=== PATIENT | female | born 1950 | race Asian ===

== ENCOUNTER 2017-04-18 08:14 | Outpatient (CLI) | payer BC, OTHER ==
--- NOTE | 2017-04-20 09:49 | Mammography Report ---
DIGITAL BILATERAL SCREENING MAMMOGRAM: 04/18/2017 CLINICAL HISTORY: This is a 66-year-old female in for routine screening mammogram. Patient has no f amily history of breast cancer. The patient has had no prior breast surgeries. COMPARISON: 02/16/2008, 05/18/2011, 06/26/2012, 11/14/2014 TECHNIQUE: Craniocaudad and oblique lateral views of each breast were obtained with [facility] digital mammography. FINDINGS: Breast parenchyma consists of scattered fibroglandular densities. A 0.4 cm in diameter be nign intramammary lymph node is once again seen in the inferior half of the left breast. No signific ant clusters of calcification are seen. No significant change is noted. IMPRESSION: BREASTS APPEAR RADIOGRAPHICALLY BENIGN. BIRADS CATEGORY 1 - NEGATIVE. RECOMMENDATIONS: Annual bilateral screening mammography. STANDARD QUALIFYING STATEMENTS 1. This examination was reviewed with the aid of Computer-Aided Detection (CAD). 2. A negative or benign imaging report should not delay biopsy if clinically suspicious findings are present. Consider surgical consultation if warranted. More than 5% of cancers are not identified by i ing. 3. Dense breasts may obscure an underlying neoplasm. JOB #: [id number] EXT JOB #:[id number]
== END 2017-04-18 08:15 | disposition home or self-care (01) ==
LOC: DI 08:14
PROVIDERS: ATTEND Registered Nurse
DX: Z12.31 Encounter for screening mammogram for malignant neoplasm of breast (principal)
CPT/HCPCS: 77067

== ENCOUNTER 2018-12-11 15:06 | Outpatient (CLI) | payer MEDICARE ==
--- NOTE | 2018-12-11 16:42 | DEXA Report ---
Reason: ENCOUNTER FOR SCREENING FOR OSTEOPOROSIS Procedure Date: 12/11/2018 Accession Number: [id number] / [id number] Procedure: DEX - Dexa Spine and/or Hip CPT Code: FULL RESULT: EXAM: Dexa Spine and/or Hip DATE: 12/11/2018 3:48 PM CLINICAL HISTORY: ENCOUNTER FOR SCREENING FOR OSTEOPOROSIS TECHNIQUE: Dual energy x-ray absorptiometry (DXA) was performed on a [employer] System. Regions measured are the AP Spine, femoral neck, and if needed forearm. COMPARISON: None. In accordance with the International Society for Clinical Densitometry (ISCD) guidelines, data from previous exams may be reanalyzed using current recommendations and techniques. This is done to allow a more accurate basis for comparison with the current study. FINDINGS: The data for the lumbar spine is as follows: BMD (g/cm/cm) T-SCORE Z-SCORE REGION L1 0.839 -2.4 -0.8 L2 0.819 -3.2 -1.5 L3 0.927 -2.3 -0.7 L4 0.916 -2.4 -0.7 TOTAL 0.881 -2.5 -0.9 NOTE: All evaluable vertebrae are used for classification The data for the hip is as follows: BMD (g/cm/cm) T-SCORE Z-SCORE REGION Neck 0.809 -1.6 -0.1 TOTAL 0.813 -1.5 -0.3 NOTE: The femoral neck or total proximal femur, whichever is lowest, is used for classification. IMPRESSION: THE WHO CLASSIFICATION BASED ON THE INTERNATIONAL REFERENCE STANDARD IS OSTEOPOROSIS. THE FRACTURE RISK IS HIGH. RECOMMENDATION: Patients with diagnosis of osteoporosis or osteopenia should have regular bone mineral density assessment. For those eligible for Medicare, routine testing is allowed once every 2 years. Testing frequency can be increased for patients who have rapidly progressing disease or for those who are receiving medical therapy to restore bone mass. COMMENT: World Health Organization (WHO) definitions for osteoporosis and osteopenia: NORMAL BMD: T-score at -1.0 or higher, fracture risk is low OSTEOPENIA BMD: T-score between -1.0 and -2.5, fracture risk is increased. OSTEOPOROSIS BMD: T-score at -2.5 or lower, fracture risk is high. National Osteoporosis Foundation recommends: 1. Obtain adequate dietary calcium (at least 1200 mg per day) and vitamin D (400-800 international units per day). 2. Participate, as appropriate, in regular weightbearing and muscle-strengthening exercise. 3. Avoid tobacco use and reduce alcohol and caffeine intake. 4. For more detailed information see the website at www.NOF.org.
== END 2018-12-11 15:07 | disposition home or self-care (01) ==
LOC: DI 15:06
PROVIDERS: ATTEND Physician Assistant
DX: Z13.820 Encounter for screening for osteoporosis (principal); M81.0 Age-related osteoporosis without current pathological fracture
CPT/HCPCS: 77080

== ENCOUNTER 2018-12-11 15:09 | Outpatient (CLI) | payer MEDICARE ==
--- NOTE | 2018-12-12 10:38 | Mammography Report ---
Reason: ROUTINE MAMMO Procedure Date: 12/11/2018 Accession Number: [id number] / [id number] Procedure: SHYLA - Screening Mammo w/Capo CPT Code: FULL RESULT: EXAM: Screening Mammo w/Capo DATE: 12/11/2018 4:12 PM CLINICAL HISTORY: Routine screening. No reported personal or family history of breast cancer. TECHNIQUE: Bilateral CC and MLO views were obtained. COMPARISON: 04/18/2017 through 05/18/2011 FINDINGS: The breasts demonstrate scattered fibroglandular densities bilaterally. Bilateral breasts: There are no suspicious masses, calcifications or areas of distortion. IMPRESSION: Negative examination RECOMMENDATION: Routine annual screening unless otherwise clinically indicated. BI-RADS CATEGORY 1: Negative STANDARD QUALIFYING STATEMENTS: 1. This examination was not reviewed with the aid of Computer-Aided Detection (CAD). 2. A negative or benign imaging report should not preclude biopsy if clinically suspicious findings are present. 3. Dense breasts may obscure an underlying neoplasm. 4. This examination was reviewed with the aid of 3D breast imaging (tomosynthesis).
== END 2018-12-11 15:10 | disposition home or self-care (01) ==
LOC: DI 15:09
PROVIDERS: ATTEND Physician Assistant
DX: Z12.31 Encounter for screening mammogram for malignant neoplasm of breast (principal)
CPT/HCPCS: 77063; 77067

== ENCOUNTER 2019-03-23 11:25 | Outpatient (CLI) | payer MEDICARE ==
--- NOTE | 2019-03-23 14:14 | XRAY Report ---
Reason: CHEST PAIN, UNSPECIFIED Procedure Date: 03/23/2019 Accession Number: [id number] / [id number] Procedure: XR - Chest 2 View X-Ray CPT Code: 72209 FULL RESULT: EXAM: CHEST RADIOGRAPHY EXAM DATE: 03/23/2019 11:39 AM. CLINICAL HISTORY: Chest pain, unspecified. COMPARISON: XR CHEST PA AND LAT 05/18/2011 2:42 PM. TECHNIQUE: 2 views. FINDINGS: Lungs/Pleura: No focal opacities evident. No pleural effusion. No pneumothorax. Normal volumes. Mediastinum: Stable nonenlarged cardiomediastinal silhouette with aortic arch calcifications. Other: None. IMPRESSION: No airspace disease is detected. RADIA
== END 2019-03-23 11:26 | disposition home or self-care (01) ==
LOC: DI 11:25
PROVIDERS: ATTEND Physician Assistant
DX: R07.9 Chest pain, unspecified (principal)
CPT/HCPCS: 71046

== ENCOUNTER 2020-10-07 12:35 | Outpatient (CLI) | payer MEDICARE ==
--- NOTE | 2020-10-07 13:48 | XRAY Report ---
PROCEDURE: Shoulder 3 View RT INDICATIONS: SHOULDER PAIN, RIGHT TECHNIQUE: 3 views of the shoulder were acquired. COMPARISON: None. FINDINGS: Bones: No fractures or dislocations. No suspicious bony lesions. Visualized ribs appear intact. M ild glenohumeral joint space narrowing and degenerative changes. Soft tissues: No suspicious soft tissue calcifications. IMPRESSION: Mild glenohumeral degenerative changes. Reviewed by: Taiwo Solis MD on 10/07/2020 1:47 PM PST Approved by: Taiwo Solis MD on 10/07/2020 1:47 PM PST Station ID: [id number]
--- NOTE | 2020-10-07 17:09 | XRAY Report ---
PROCEDURE: Hand 3 View BILAT INDICATIONS: HAND PAIN BILATERAL TECHNIQUE: 3 views of each hand acquired. COMPARISON: None. FINDINGS: Bones: No fractures or dislocations. There is mild narrowing of the distal interphalangeal joints bi laterally. The metacarpophalangeal joint spaces appear preserved. No discrete bony erosions. There is mild narrowing of the radiocarpal and first carpometacarpal joint spaces bilaterally. No suspicious bony lesions. Soft tissues: No suspicious soft tissue calcifications. IMPRESSION: 1. Mild osteoarthritic changes of the distal interphalangeal, radiocarpal, and first carpometacarpal joints bilaterally. 2. No definite evidence of inflammatory arthropathy. Reviewed by: Damon French MD on 10/07/2020 5:08 PM [facility] Approved by: Damon French MD on 10/07/2020 5:08 PM [facility] Station ID: [id number]
== END 2020-10-07 12:36 | disposition home or self-care (01) ==
LOC: DI.S 12:35
PROVIDERS: ATTEND Nurse Practitioner Family
DX: M19.011 Primary osteoarthritis, right shoulder (principal); M18.0 Bilateral primary osteoarthritis of first carpometacarpal joints; M19.042 Primary osteoarthritis, left hand; M19.041 Primary osteoarthritis, right hand

== ENCOUNTER 2022-01-13 07:52 | Outpatient (CLI) | payer MEDICARE ==
--- NOTE | 2022-01-14 15:53 | Mammography Report ---
BILATERAL DIGITAL SCREENING MAMMOGRAM 3D/2D WITH EXAGGERATED CC: 01/13/2022 CLINICAL: Routine screening. Comparison is made to exams dated: 12/11/2018 mammogram and 04/18/2017 mammogram - [facility]. There are scattered fibroglandular elements in both breasts. No significant masses, calcifications, or other findings are seen in either breast. There has been no significant interval change. IMPRESSION: NEGATIVE There is no mammographic evidence of malignancy. A 1 year screening mammogram is recommended. This exam was interpreted at Station ID: [id number]. NOTE: For mammograms, a report in lay terms will be sent to the patient. Approximately 15% of breast malignancies will not be visualized mammographically. In the management of a palpable breast mass, a negative mammogram must not discourage biopsy of a clinically suspicious lesion. Electronically Signed By: Bella richardson/[email or web address]:01/13/2022 11:01:12 ACR BI-RADS Category 1: Negative 3341F PARENCHYMAL PATTERN: (A) - The breast(s) demonstrate(s) scattered fibroglandular densities. BI-RADS CATEGORY: (1) - 1 RECOMMENDATION: (ANNUAL) - Recommend routine annual screening mammography. [id number] 1 year screening LATERALITY: (B)
== END 2022-01-13 07:53 | disposition home or self-care (01) ==
LOC: DI.S 07:52
PROVIDERS: ATTEND Nurse Practitioner Family
DX: Z12.31 Encounter for screening mammogram for malignant neoplasm of breast (principal)

== ENCOUNTER 2022-06-25 08:03 | Outpatient (CLI) | payer MEDICARE ==
--- NOTE | 2022-06-25 12:06 | DEXA Report ---
PROCEDURE: Dexa Spine and/or Hip INDICATIONS: OSTEOPOROSIS TECHNIQUE: Dual energy x-ray absorptiometry (DXA) was performed on a [employer] System. Regions measur ed are the AP Spine, femoral neck, and if needed forearm. COMPARISON: None. FINDINGS: Lumbar Spine: Bone Mineral Density 0.907 g/cm/cm,T score -2.3, osteopenia Left Hip: Bone Mineral Density 0.776 g/cm/cm,T score -1.8, osteopenia Left Femoral Neck: Bone Mineral Density 0.796 g/cm/cm, T score -1.7, osteopenia (T score greater or equal to -1.0: NORMAL) (T score from -1.1 to -2.4: OSTEOPENIA) (T score less than or equal to -2.5 to: OSTEOPOROSIS) Impression: Osteopenia. Patient is at increased risk for fracture. Of note, patient's bone mineral density of the left femur has decreased 4.6% compared to prior study. Patients with diagnosis of osteoporosis or osteopenia should have regular bone mineral density assess ment. For those eligible for Medicare, routine testing is allowed once every 2 years. Testing frequ ency can be increased for patients who have rapidly progressing disease or for those who are receivin g medical therapy to restore bone mass. Reviewed by: Raul Son MD on 06/25/2022 12:04 PM PDT Approved by: Raul Son MD on 06/25/2022 12:04 PM PDT Station ID: [id number]
== END 2022-06-25 08:04 | disposition home or self-care (01) ==
LOC: DI 08:03
PROVIDERS: ATTEND Nurse Practitioner Family
DX: M85.89 Other specified disorders of bone density and structure, multiple sites (principal)

== ENCOUNTER 2023-01-17 08:54 | Outpatient (CLI) | payer MEDICARE ==
--- NOTE | 2023-01-19 10:05 | Mammography Report ---
BILATERAL DIGITAL SCREENING MAMMOGRAM 3D/2D: 01/17/2023 CLINICAL: Routine screening. Comparison is made to exams dated: 12/11/2018 mammogram, 04/18/2017 mammogram, and 11/14/2014 mammogram - [facility]. There are scattered areas of fibroglandular density in both breasts (category b / 25%-50% glandular t issue). No significant masses, calcifications, or other findings are seen in either breast. There has been no significant interval change. IMPRESSION: NEGATIVE There is no mammographic evidence of malignancy. A 1 year screening mammogram is recommended. Based on the Tyrer Cuzick model (a risk assessment model) the patients lifetime risk is 6.0% and her 10 year risk is 3.8%. According to the ACR, ACS, and NCCN guidelines, an annual breast MRI exam vincent g with mammogram is recommended if the patients lifetime risk is 20% or greater. This exam was interpreted at Station ID: [id number]. NOTE: For mammograms, a report in lay terms will be sent to the patient. Approximately 15% of breast malignancies will not be visualized mammographically. In the management of a palpable breast mass, a negative mammogram must not discourage biopsy of a clinically suspicious lesion. Electronically Signed By: Raul stratton/kelli:01/17/2023 17:09:33 letter sent: No_Letter ACR BI-RADS Category 1: Negative 3341F PARENCHYMAL PATTERN: (A) - The breast(s) demonstrate(s) scattered fibroglandular densities. BI-RADS CATEGORY: (1) - 1 Mammogram [id number] 1 year screening LATERALITY: (B)
== END 2023-01-17 08:55 | disposition home or self-care (01) ==
LOC: DI.S 08:54
PROVIDERS: ATTEND Nurse Practitioner Family
DX: Z12.31 Encounter for screening mammogram for malignant neoplasm of breast (principal)

== ENCOUNTER 2023-04-22 14:13 | Outpatient (CLI) | payer MEDICARE ==
--- NOTE | 2023-04-22 14:57 | XRAY Report ---
PROCEDURE: Cervical Spine 2 View INDICATIONS: RIB PAIN, COUGH TECHNIQUE: 3 view(s) of the cervical spine were acquired. COMPARISON: None. FINDINGS: Bones: No fractures or dislocations to the C7 level. Straightening of normal cervical lordosis. Min imal anterolisthesis of C3 on C4 and C4 on C5 The lateral masses of C1 appear intact on the odontoid view. No suspicious bony lesions. Degenerative changes of the cervical spine. This is worse at C5-C 6 with osteophyte formation, disc height loss, uncovertebral and facet arthropathy. Soft tissues: No prevertebral soft tissue swelling. IMPRESSION: Degenerative changes of the cervical spine, most pronounced at C5-C6. No acute fracture. Reviewed by: Terence Becker MD on 04/22/2023 2:56 PM PDT Approved by: Terence Becker MD on 04/22/2023 2:56 PM PDT Station ID: [id number]
--- NOTE | 2023-04-22 14:58 | XRAY Report ---
PROCEDURE: Chest 2 View X-Ray INDICATIONS: RIB PAIN, COUGH TECHNIQUE: 2 views of the chest were acquired. COMPARISON: Chest x-ray 03/23/2019 FINDINGS: Surgical changes and devices: None. Lungs and pleura: No pleural effusions or pneumothorax. Lungs are clear. Mediastinum: Mediastinal contours appear normal. Heart size is normal. Bones and chest wall: No suspicious bony lesions. Overlying soft tissues appear unremarkable. IMPRESSION: No acute cardiopulmonary process. Reviewed by: Terence Becker MD on 04/22/2023 2:57 PM PDT Approved by: Terence Becker MD on 04/22/2023 2:57 PM PDT Station ID: [id number]
--- NOTE | 2023-04-22 15:00 | XRAY Report ---
PROCEDURE: Thoracic Spine 3 View INDICATIONS: RIB PAIN,COUGH TECHNIQUE: 2 views of the thoracic spine were acquired. COMPARISON: None. FINDINGS: Bones: No fractures or dislocations. Minimal dextrocurvature of the thoracic spine. No suspicious b carrie lesions. 12 pairs of ribs are noted, and appear intact where visualized. Decreased osseous mine ralization. Degenerative changes of the thoracic spine with mild osteophyte formation and disc height loss. Soft tissues: No paravertebral stripe thickening. Atherosclerotic vascular calcifications. IMPRESSION: Mild degenerative changes of the thoracic spine. No acute fracture. Reviewed by: Terence Becker MD on 04/22/2023 2:59 PM PDT Approved by: Terence Becker MD on 04/22/2023 2:59 PM PDT Station ID: [id number]
== END 2023-04-22 14:14 | disposition home or self-care (01) ==
LOC: DI.S 14:13
PROVIDERS: ATTEND Internal Medicine
DX: M47.812 Spondylosis without myelopathy or radiculopathy, cervical region (principal); M47.814 Spondylosis without myelopathy or radiculopathy, thoracic region; R05.9 Cough, unspecified

== ENCOUNTER 2023-05-19 07:42 | Outpatient (CLI) | payer MEDICARE | END 2023-05-19 07:43 | disposition home or self-care (01) | LOC: RT 07:42 | PROVIDERS: ATTEND Internal Medicine | DX: R07.81 Pleurodynia (principal); R05.8 Other specified cough | CPT/HCPCS: 94010; 94729 ==

== ENCOUNTER 2023-12-05 08:00 | Outpatient (CLI) | payer MEDICARE ==
--- NOTE | 2023-12-05 20:07 | XRAY Report ---
PROCEDURE: Ribs w/PA Chest 3+V RT INDICATIONS: RIGHT SIDED RIB PAIN TECHNIQUE: 2 views of the ribs were acquired, along with a single view chest. COMPARISON: Chest radiographs 04/22/2023. FINDINGS: Surgical changes and devices: None. Bones and chest wall: Minimally displaced fractures of the anterolateral right 6th and 7th ribs as w ell as the posterior lateral right 9th and 10th ribs. No suspicious bony lesions. Overlying soft tis sues appear unremarkable. Lungs and pleura: Trace right pleural effusion with mild bibasilar atelectasis. No pneumothorax. Mediastinum: Mediastinal contours appear normal. Heart size is normal. IMPRESSION: 1.Mildly displaced fractures of the anterolateral right 6th and 7th ribs and posterior lateral right 9th and 10th ribs. 2.Trace right pleural effusion. No pneumothorax. Reviewed by: Alexandr Velasquez MD on 12/05/2023 8:06 PM PST Approved by: Alexandr Velasquez MD on 12/05/2023 8:06 PM PST Station ID: [id number]
== END 2023-12-05 23:59 | disposition home or self-care (01) ==
LOC: DI.S 08:00
PROVIDERS: ATTEND Registered Nurse
DX: S22.41XA Multiple fractures of ribs, right side, initial encounter for closed fracture (principal)

== ENCOUNTER 2023-12-12 08:00 | Outpatient (CLI) | payer MEDICARE ==
[2023-12-12 14:49] LABS: BASOPHILS # (AUTO) 0.1 10^3/uL (0.0-0.1); EOSINOPHILS # (AUTO) 0.3 10^3/uL (0.0-0.7); EOSINOPHILS % (AUTO) 3.1 %; HCT - HEMATOCRIT 44.3 % (37.0-47.0); HGB - HEMOGLOBIN 13.9 g/dL (12.0-16.0); LYMPHOCYTES # (AUTO) 2.8 10^3/uL (1.5-3.5); LYMPHOCYTES % (AUTO) 32.6 %; MEAN CORPUSCULAR HEMOGLOBIN 28.5 pg (27.0-31.0); MEAN CORPUSCULAR HGB CONC 31.4 g/dL (32.0-36.0); MEAN CORPUSCULAR VOLUME 90.8 fL (81.0-99.0); MONOCYTES # (AUTO) 0.6 10^3/uL (0.0-1.0); MONOCYTES % (AUTO) 7.4 %; NEUTROPHILS # (AUTO) 4.8 10^3/uL (1.5-6.6); NEUTROPHILS % (AUTO) 55.2 %; PLT - PLATELET COUNT 503 10^3/uL (130-450); RED BLOOD COUNT 4.88 10^6/uL (4.20-5.40); RED CELL DISTRIBUTION WIDTH 13.6 % (12.0-15.0); WHITE BLOOD COUNT 8.7 x10^3/uL (4.8-10.8)
[2023-12-12 15:03] LABS: ALBUMIN 4.3 g/dL (3.2-5.5); ALBUMIN/GLOBULIN RATIO 1.3 (1.0-2.2); ALKALINE PHOSPHATASE 132 IU/L (42-121); ALT ALANINE AMINOTRANSFERASE 36 IU/L (10-60); AST ASPARTATE AMINOTRANSFERASE 26 IU/L (10-42); BILIRUBIN,TOTAL 0.5 mg/dL (0.2-1.0); BUN - BLOOD UREA NITROGEN 17 mg/dL (6-20); CARBON DIOXIDE - CO2 31 mmol/L (21-32); CHLORIDE 103 mmol/L (101-111); CHOL/HDL RATIO 3.5 (<4.4); CHOLESTEROL 127 mg/dL; GFR - MDRD 55 (>89); GLUCOSE 102 mg/dL (74-104); HDL CHOLESTEROL 36 mg/dL; LDL CHOLESTEROL,CALCULATED 65 mg/dL; LDL/HDL RATIO 1.8 (<4.4); POTASSIUM 4.1 mmol/L (3.5-4.5); SODIUM 140 mmol/L (135-145); TOTAL PROTEIN 7.6 g/dL (6.4-8.9); TRIGLYCERIDES 130 mg/dL (48-352); VLDL CHOLESTEROL 26 mg/dL
[2023-12-12 15:07] LABS: CREATININE,URINE 120.9 mg/dL
[2023-12-12 15:11] LABS: MICROALBUMIN,URINE < 0.7 mg/dL
[2023-12-12 15:18] LABS: THYROID STIMULATING HORMONE 4.02 uIU/mL (0.34-5.60)
[2023-12-12 15:24] LABS: FERRITIN 152.5 ng/mL (11.0-306.8)
[2023-12-12 15:27] LABS: ESTIMATED AVERAGE GLUCOSE 140 mg/dL (70-100); HEMOGLOBIN A1c% 6.5 % (4.27-6.07)
== END 2023-12-12 08:01 | disposition home or self-care (01) ==
LOC: LAB.S 08:00
PROVIDERS: ATTEND Internal Medicine
DX: Z00.00 Encounter for general adult medical examination without abnormal findings (principal); Z79.899 Other long term (current) drug therapy; E78.5 Hyperlipidemia, unspecified; R73.09 Other abnormal glucose
CPT/HCPCS: 36415; 80053; 80061; 82043; 82306; 82570; 82607; 82728; 83036; 83721; 84443; 85025

== ENCOUNTER 2024-06-01 07:29 | Outpatient (CLI) | payer MEDICARE ==
[2024-06-01 21:48] LABS: ESTIMATED AVERAGE GLUCOSE 137 mg/dL (70-100); HEMOGLOBIN A1c% 6.4 % (4.27-6.07)
== END 2024-06-01 07:30 | disposition home or self-care (01) ==
LOC: LAB.S 07:29
PROVIDERS: ATTEND Internal Medicine
DX: R73.09 Other abnormal glucose (principal)
CPT/HCPCS: 36415; 83036